=== PATIENT | male | born 1955 | race Caucasian/White ===

== ENCOUNTER 2024-07-07 13:21 | Outpatient (AMB) | payer MEDICARE, SELFPAY ==
[2024-07-07 13:30] VITALS: BP 101/66; PULSE 77; RESP 16; TEMP 36.6; O2SAT 95; BMI 26.6
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
== END 2024-07-07 14:07 | disposition home or self-care (01) ==
PROVIDERS: Supervising Provider Internal Medicine; Visit Provider Student in an Organized Health Care Education/Training Program
DX: I50.20 Unspecified systolic (congestive) heart failure (principal); R20.2 Paresthesia of skin; Z71.85 Encounter for immunization safety counseling; Z79.82 Long term (current) use of aspirin
CPT/HCPCS: 99213; G0463

== ENCOUNTER → 2024-07-07 | Outpatient (CLI) | payer MEDICARE, SELFPAY ==
[2024-07-07 16:37] LABS: Glucose Estimated Average 114 mg/dL (80-131); Hemoglobin A1C 5.6 % Hgb (4.8-6.0)
[2024-07-07 16:41] LABS: Albumin, Serum 4.2 gm/dL (3.4-4.8); Anion Gap 5 (7-16); BUN/Creatinine Ratio 12 Ratio (12-20); Blood Urea Nitrogen 14 mg/dL (9-23); Calcium 9.4 mg/dL (8.3-10.6); Calcium (Corrected) 9.4 mg/dL (8.5-10.1); Carbon Dioxide 31.3 mMol/L (20.0-31.0); Chloride 104 mMol/L (98-107); Creatinine (Component) 1.2 mg/dL (0.6-1.3); Glucose 99 mg/dL (74-106); Osmolality,Calculated 279 (275-295); Phosphorous 3.5 mg/dL (2.4-5.1); Potassium 4.4 mMol/L (3.4-5.1); Sodium 140 mMol/L (136-145); eGFR > 60 See Note
== END | disposition home or self-care (01) ==
PROVIDERS: PCP Student in an Organized Health Care Education/Training Program; Referring Provider Student in an Organized Health Care Education/Training Program; Visit Provider Student in an Organized Health Care Education/Training Program
DX: Z13.1 Encounter for screening for diabetes mellitus (principal); I50.21 Acute systolic (congestive) heart failure
CPT/HCPCS: 36415; 80069; 83036

== ENCOUNTER 2024-07-15 14:05 | Outpatient (AMB) | payer MEDICARE, SELFPAY ==
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
[2024-07-15 14:08] VITALS: BP 118/73; PULSE 88; RESP 16; TEMP 35.8; O2SAT 93; BMI 25.9
== END 2024-07-15 14:44 | disposition home or self-care (01) ==
LOC: HODAHC 14:05
PROVIDERS: PCP Internal Medicine; Referring Provider Internal Medicine; Supervising Provider Internal Medicine; Visit Provider Internal Medicine
DX: Z71.2 Person consulting for explanation of examination or test findings (principal); I50.21 Acute systolic (congestive) heart failure
CPT/HCPCS: 99213; G0463

== ENCOUNTER 2024-08-07 09:00 | Outpatient (AMB) | payer MEDICARE, SELFPAY ==
[2024-08-07 09:25] VITALS: BP 105/66; PULSE 70; RESP 16; TEMP 35.7; O2SAT 95; BMI 26.4
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
== END 2024-08-07 10:06 | disposition home or self-care (01) ==
LOC: HODAHC 09:00
PROVIDERS: PCP Student in an Organized Health Care Education/Training Program; Referring Provider Student in an Organized Health Care Education/Training Program; Supervising Provider Internal Medicine; Visit Provider Student in an Organized Health Care Education/Training Program
DX: S40.022A Contusion of left upper arm, initial encounter (principal); X58.XXXA Exposure to other specified factors, initial encounter; I11.0 Hypertensive heart disease with heart failure; I50.20 Unspecified systolic (congestive) heart failure; I25.10 Atherosclerotic heart disease of native coronary artery without angina pectoris; E78.5 Hyperlipidemia, unspecified; Z79.82 Long term (current) use of aspirin
CPT/HCPCS: 99213; G0463